=== PATIENT | female | born 1990 | race American Indian/Alaskan Native ===

== ENCOUNTER 2018-12-28 20:56 | Emergency (ER) | payer SELFPAY ==
--- NOTE | 2018-12-28 21:37 | Event Note ---
ED Screening Note ED Screening Note: This initial assessment/diagnostic orders/clinical plan/treatment(s) is/are subject to change based on patients health status, clinical progression and re- assessment by fellow clinical providers in the ED. Further treatment and workup at subsequent clinical providers discretion. Patient/guardian urged not to elope from the ED as their condition may be serious if not clinically assessed and managed. Initial orders include: 28 yo BF 8 weeks presents with abdominal pain and vaginal bleeding x 1 day. She states that is currently experiencing abdominal pain.
--- NOTE | 2018-12-28 22:16 | Emergency Department Report ---
ED HPI - General Chief complaint: Vaginal Bleeding Stated complaint: VAGINAL SPOTTING Time Seen by Provider: 12/28/18 22:15 Source: patient Mode of arrival: Ambulatory Limitations: No Limitations - History of Present Illness Initial comments: Patient is a 28-year-old female that presents emergency room with complaints of vaginal spotting and abdominal pain. Patient states her symptoms started at 7 AM today. Patient describes the abdominal pain as cramping. Patient states she took a home on December 10. Patient states her last missed her period was October 24 of this year. Patient states she started spotting at 7 AM today. Patient states her abdominal pain is a 4 out of 10. Patient states better with rest and worse with movement. Patient states she is not required to wear pads because minimal amount of blood is coming out. Patient denies clots. Patient denies passing tissue. Patient denies vaginal discharge. Patient denies dysuria. Patient denies fever and chills. States she has not seen OVEN TECHNICIAN for this . MD Complaint: abdominal pain, vaginal bleeding -: Sudden Location: abdomen Radiation: none Severity scale (0 -10): 4 Quality: aching Consistency: constant Improves with: rest Worsens with: movement Associated symptoms: vaginal bleeding. denies: nausea/vomiting, vaginal discharge, abdominal pain, dysuria, headache, vision changes, malaise, dy sparuenia, rash, seizure, shortness of breath, syncope, weakness Vaginal bleeding: light :: Yes - Related Data Allergies Allergy/AdvReac Type Severity Reaction Status Date / Time No Known Allergies Allergy Unverified 12/28/18 21:16 ED Review of Systems ROS: Stated complaint: VAGINAL SPOTTING Other details as noted in HPI Constitutional: denies: chills, fever Eyes: denies: eye pain, eye discharge, vision change ENT: denies: ear pain, throat pain Respiratory: denies: cough, shortness of breath, wheezing Cardiovascular: denies: chest pain, palpitations Endocrine: no symptoms reported Gastrointestinal: abdominal pain. denies: nausea, diarrhea Genitourinary: denies: urgency, dysuria, discharge Musculoskeletal: denies: back pain, joint swelling, arthralgia Skin: denies: rash, lesions Neurological: denies: headache, weakness, paresthesias Psychiatric: denies: anxiety, depression Hematological/Lymphatic: denies: easy bleeding, easy bruising ED Past Medical Hx - Past Medical History Previous Medical History?: No - Surgical History Past Surgical History?: No - Family History Family history: no significant - Social History Smoking Status: Never Smoker Substance Use Type: None ED Physical Exam - General Limitations: No Limitations General appearance: alert, in no apparent distress - Head Head exam: Present: atraumatic, normocephalic - Eye Eye exam: Present: normal appearance - ENT ENT exam: Present: mucous membranes moist - Neck Neck exam: Present: normal inspection - Respiratory Respiratory exam: Present: normal lung sounds bilaterally. Absent: respiratory distress - Cardiovascular Cardiovascular Exam: Present: regular rate, normal rhythm. Absent: systolic murmur, diastolic murmur, rubs, gallop - GI/Abdominal GI/Abdominal exam: Present: soft, normal bowel sounds. Absent: distended, tenderness, guarding - Rectal Rectal exam: Present: deferred - Extremities Exam Extremities exam: Present: normal inspection - Back Exam Back exam: Present: normal inspection - Neurological Exam Neurological exam: Present: alert, oriented X3 - Psychiatric Psychiatric exam: Present: normal affect, normal mood - Skin Skin exam: Present: warm, dry, intact, normal color. Absent: rash ED Course Vital Signs 12/28/18 12/29/18 21:16 01:00 Temperature 98.7 F Pulse Rate 127 H 84 Respiratory 18 18 Rate Blood Pressure 140/90 Blood Pressure 104/78 [Left] O2 Sat by Pulse 100 100 Oximetry - Reevaluation(s) Reevaluation #1: I discussed all results with patient. I discussed plan of care with patient. Patient agrees with plan of care. Patient is stable for discharge. Patient will be discharged home. Patient given discharge instructions. Patient voiced understanding of discharge instructions. 12/29/18 00:39 - Consultations Consultation #1: I discussed case with OVEN TECHNICIAN, Dr. Orellana and he recommends discharge and follow- up in his office in a couple days. He also states that the ultrasound shows an IUP and a possible threatened miscarriage 12/29/18 00:15 ED Medical Decision Making - Lab Data Result diagrams: 12/28/18 22:04 - Radiology Data Radiology results: report reviewed US OB transvaginal, US OB <= 14 weeks fetus INDICATION / CLINICAL INFORMATION: vag bleeding, + home test. COMPARISON: None available. FINDINGS: Uterus measures 10 cm. There is a gestational sac measuring 2.1 cm within the endometrial cavity. No evidence of pole. Heterogeneous area in the cervix may represent blood clot. Both ovaries are identified. The right ovary measures 4.3 cm x 2.7 cm. The left ovary measures 3.2 cm x 1.7 cm. A complex 2.5 cm right ovarian cyst is seen. No free fluid collections are seen in the cul-de-sac. IMPRESSION: 1. 7 week size intrauterine gestational sac without pole. - Medical Decision Making Patient is a 28-year-old female that presents emergency room with abdominal cramps and vaginal spotting. Patient had labs done which were unremarkable. Patient had an ultrasound service which shows an IUP at 7 weeks. I discussed the case with Dr. Orellana, He recommends discharge and follow-up in 2-3 days in his office. He states that the ultrasound may represent a threatened miscarriage or a normal IUP but the patient stable for discharge. Patient is antibody negative. - Differential Diagnosis threatened miscarriage. Vaginal spotting. Abdominal cramps. Critical care attestation.: If time is entered above; I have spent that time in minutes in the direct care of this critically ill patient, excluding procedure time. ED Disposition Clinical Impression: Vaginal spotting, Abdominal cramps Abdominal pain Qualifiers: Abdominal location: lower abdomen, unspecified Qualified Code(s): R10.30 - Lower abdominal pain, unspecified Qualifiers: Weeks of gestation: less than 8 weeks Qualified Code(s): Z3A.01 - Less than 8 weeks gestation of Disposition: - TO HOME OR SELFCARE Is pt being admited?: No Does the pt Need Aspirin: No Condition: Stable Instructions: Spontaneous Miscarriage (ED), Threatened Miscarriage (ED), (ED) Additional Instructions: Patient to follow-up with primary care in 2-3 days. Patient to follow-up with OVEN TECHNICIAN in 2-3 days. Patient to return to ER if condition worsens. Patient to rest. Patient to increase water. Patient to take meds as directed. Patient's take Tylenol when necessary for pain. Patient to start a vitamin. Referrals: PRIMARY CARE, [Primary Care Provider] - 2-3 Days CHANTEL ORELLANA MD [Staff Physician] - 2-3 Days Time of Disposition: 00:25
[2018-12-28 22:44] LABS: Basophils % (Auto) 0.5 % (0.0-1.8); Eosinophils % (Auto) 0.7 % (0.0-4.3); Hematocrit 40.3 % (30.3-42.9); Hemoglobin 13.4 gm/dl (10.1-14.3); Lymphocytes % (Auto) 32.6 % (13.4-35.0); Mean Corpuscular HGB Conc 33 % (30-34); Mean Corpuscular Volume 86 fl (79-97); Monocytes # (Auto) 0.5 K/mm3 (0.0-0.8); Monocytes % (Auto) 7.8 % (0.0-7.3); Platelet Count 227 K/mm3 (140-440); Red Blood Count 4.67 M/mm3 (3.65-5.03); Red Cell Distribution Width 17.4 % (13.2-15.2)
--- NOTE | 2018-12-28 22:51 | Ultrasound Report ---
US OB transvaginal, US OB <= 14 weeks fetus INDICATION / CLINICAL INFORMATION: vag bleeding, + home test. COMPARISON: None available. FINDINGS: Uterus measures 10 cm. There is a gestational sac measuring 2.1 cm within the endometrial cavity. No evidence of pole. Heterogeneous area in the cervix may represent blood clot. Both ovaries are identified. The right ovary measures 4.3 cm x 2.7 cm. The left ovary measures 3.2 cm x 1.7 cm. A complex 2.5 cm right ovarian cyst is seen. No free fluid collections are seen in the cul-de-sac. IMPRESSION: 1. 7 week size intrauterine gestational sac without pole. Signer Name: Taqueria Garrett MD Signed: 12/28/2018 10:46 PM Workstation Name: [id number]
[2018-12-28 23:42] LABS: Bilirubin,Urine NEG (Negative); Blood,Urine LG (Negative); Color,Urine Yellow (Yellow); Mucus,Urine FEW /HPF; Protein,Urine <15 mg/dL mg/dL (Negative); Urobilinogen,Urine < 2.0 mg/dL (<2.0)
[2018-12-29 01:01] VITALS: BP 104/78
== END 2018-12-29 01:01 | disposition home or self-care (01) ==
LOC: ED 20:56
DX: O20.8 Other hemorrhage in early pregnancy (principal); O26.891 Other specified pregnancy related conditions, first trimester; R10.30 Lower abdominal pain, unspecified; Z3A.01 Less than 8 weeks gestation of pregnancy
CPT/HCPCS: 36415; 76801; 76817; 81001; 84702; 85025; 86850; 86900; 86901